=== PATIENT | male | born 1960 | race Caucasian/White ===

== ENCOUNTER 2016-06-23 13:36 | Emergency (ER) | payer BC ==
[2016-06-23 14:19] VITALS: RESP 18
--- NOTE | 2016-06-23 14:56 | ED ---
General Adult HPI - General Chief complaint: Back Pain/Injury Stated complaint: atavan withdrawl/fell yesterday Time Seen by Provider: 06/23/16 14:45 Source: patient, RN notes reviewed Mode of arrival: ambulatory Limitations: no limitations - History of Present Illness Initial comments: Patient 55-year-old male who presents emergency room today with a chief complaint of fall occurred 2 days ago. He does admit that he was using a walker when it got stuck causing him to lose his balance going down the right side. States he did hit the right side of his ribs. Denies any head injury or loss consciousness. Patient states that has had some tenderness to the right side of his back and lateral ribs. States worse with certain movements of bending or turning, and twisting. Patient denies any other complaints or symptoms. He does admit that he is currently out of a prescription for Ativan as well. States he does have a prescription at the pharmacy. Patient denies any other complaints or symptoms at this time. Patient denies any recent fever, chills, shortness of breath, chest pain, abdominal pain, nausea or vomiting, numbness or tingling, dysuria or hematuria, constipation or diarrhea, headaches or visual changes, or any other complaints. - Related Data Home Medications Medication Instructions Recorded Confirmed lamoTRIgine 200 mg PO DAILY 10/29/15 06/23/16 Gabapentin [Neurontin] 300 mg PO TID 12/14/15 06/23/16 Previous Rx's Medication Instructions Recorded Atorvastatin [Lipitor] 80 mg PO HS #30 tab 11/01/15 Lisinopril [Zestril] 5 mg PO BID #60 tab 11/01/15 Metoprolol Tartrate [Lopressor] 50 mg PO BID #60 tab 11/01/15 Nitroglycerin Sl Tabs [Nitrostat] 0.4 mg SUBLINGUAL Q5M PRN #50 tab 11/01/15 Prasugrel [Effient] 10 mg PO DAILY #30 tab 11/01/15 LORazepam [Ativan] 2 mg PO TID #90 tablet 03/10/16 Hydrocodone/Acetaminophen [[place] 1 each PO Q6HR PRN #20 tab 06/23/16 5-325] Ibuprofen [Motrin] 600 mg PO Q6HR PRN #40 day 06/23/16 Allergies Allergy/AdvReac Type Severity Reaction Status Date / Time amoxicillin Allergy Rash/Hives Verified 06/23/16 15:08 phenobarbital Allergy Rash/Hives Verified 06/23/16 15:08 Review of Systems ROS Statement: Those systems with pertinent positive or pertinent negative responses have been documented in the HPI. ROS Other: All systems not noted in ROS Statement are negative. Past Medical History Past Medical History: Chest Pain / Angina, Hyperlipidemia, Hypertension, Osteoarthritis (OA), Syncope Additional Past Medical History / Comment(s): chronic etoh abuse BRONCHITIS, ARTHRITIS, SHINGLE 1999,STATED HAS LOST 100 POUNDS SINCE MAR 2015(PTS SISTER STATED PT WILL DRINK HIS BEER AND THEN NOT WANT TO EAT), FLOATERS IN EYES, DEG ARTHITIS, ALCOHOL INDUCED PANCREATITIS History of Any Multi-Drug Resistant Organisms: None Reported Past Surgical History: Adenoidectomy, Heart Catheterization With Stent, Tonsillectomy Additional Past Surgical History / Comment(s): DRAINAGE OF PERIRECTAL ABCESS, HEART CATH WITH 3 STENTS IN OCTOBER 2015 Past Anesthesia/Blood Transfusion Reactions: No Reported Reaction Date of Last Stent Placement:: 10/30- Past Psychological History: Anxiety, Depression Additional Psychological History / Comment(s): PT DENIES HAVING ANY SUICIDAL THOUGHTS BUT ADMITS TO BEING DEPRESSED. Smoking Status: Never smoker Past Alcohol Use History: Abuse Additional Past Alcohol Use History / Comment(s): ADMITS TO 6-8 BEERS PER DAY, PINT OF [place] COMFORT DAILY. Past Drug Use History: None Reported - Past Family History Mother History Unknown: Yes Additional Family Medical History / Comment(s): PT STATED SHE IN HOSPITAL FEW MONTHS AGO THINKS IT WAS COMPLICTIONS FROM ASPERATIVE PNE Father Family Medical History: Cancer Additional Family Medical History / Comment(s): LUNG/ BRAIN CANCER General Exam - General Exam Comments Initial Comments: General: The patient is awake and alert, in no distress, and does not appear acutely ill. Eye: Pupils are equal, round and reactive to light, extra-ocular movements are intact. No nystagmus. There is normal conjunctiva bilaterally. No signs of icterus. Ears, nose, mouth and throat: There are moist mucous membranes and no oral lesions. Neck: The neck is supple, there is no tenderness or JVD. Cardiovascular: There is a regular rate and rhythm. No murmur, rub or gallop is appreciated. Respiratory: Lungs are clear to auscultation, respirations are non-labored, breath sounds are equal. No wheezes, stridor, rales, or rhonchi. Gastrointestinal: Soft, non-distended, non-tender abdomen without masses or organomegaly noted. There is no rebound or guarding present. No CVA tenderness. Bowel sounds are unremarkable. Musculoskeletal: Normal appearance of cervical, thoracic, lumbar spine. No step-offs for is appreciated. No tenderness over the spinous processes. Patient does have mild tenderness in the right posterior and lateral ribs. No signs of bruising, swelling. No deformities. Strength 5/5. Sensation intact. Pulses equal bilaterally 2+. Neurological: A&O x 3. CN II-XII intact, There are no obvious motor or sensory deficits. Coordination appears grossly intact. Speech is normal. Skin: Skin is warm and dry and no rashes or lesions are noted. Psychiatric: Cooperative, appropriate mood & affect, normal judgment. Limitations: no limitations Course Vital Signs 06/23/16 14:13 Temperature 98.5 F Pulse Rate 76 Respiratory 18 Rate Blood Pressure 151/73 O2 Sat by Pulse 95 Oximetry Medical Decision Making - Medical Decision Making X-rays reviewed and does show evidence of nondisplaced fractures of the eighth 8 ,9,10 right anterior ribs. Results were discussed with patient. Patient mitts to hyperventilating due to not having Serevent. Will be given dose of Ativan here in the emergency room but does have this medication at the pharmacy that he can hot die picker. Will be given pain medication as she states she has not been using anything advised used Tylenol Motrin if needed to begin using [place]. Advised to not use Tylenol or [place] at same time. Patient advised of side effects of [place]. Advised follow-up with family doctor or return here to emergency room if any symptoms increase or worsen. Disposition Clinical Impression: Ribs, multiple fractures Disposition: HOME SELF-CARE Condition: Good Instructions: Rib Fracture (ED) Additional Instructions: Please use medication as discussed. Please follow-up with family doctor in the next 2 days of symptoms have not improved. Please return to emergency room if the symptoms increase or worsen or for any other concerns. Prescriptions: Hydrocodone/Acetaminophen [[place] 5-325] 1 each PO Q6HR PRN #20 tab PRN Reason: Pain Ibuprofen [Motrin] 600 mg PO Q6HR PRN #40 day PRN Reason: Pain Time of Disposition: 15:49
--- NOTE | 2016-06-23 15:16 | XR ---
EXAMINATION TYPE: XR ribs RT w pa chest xray DATE OF EXAM: 06/23/2016 3:08 PM COMPARISON: 03/05/2016 HISTORY: Pain TECHNIQUE: Single view of the chest 4 views of the ribs are submitted. FINDINGS: The lungs are clear. No Evidence for pneumothorax. No evidence for focal contusion. Medi astinal structures are midline. Evaluation of the right-sided ribs demonstrates of fractures of the anterior right ribs 8, 9 and 10 c ompatible with acute rib fractures. There is also callus formation involving the right rib 8 compatib le with remote fracture as well as remote appearing deformity of right ribs 7. IMPRESSION: 1. Right-sided rib fractures as discussed.
[2016-06-23] MEDS ORDERED: LORazepam 1 MG TAB PO STA (15:33)
[2016-06-23 16:49] VITALS: BP 169/81; PULSE 71; TEMP 98.3
== END 2016-06-23 16:56 | disposition home or self-care (01) ==
LOC: EC 13:36
DX: S22.41XA Multiple fractures of ribs, right side, initial encounter for closed fracture (principal); W01.0XXA Fall on same level from slipping, tripping and stumbling without subsequent striking against object, initial encounter; Z79.899 Other long term (current) drug therapy; Z88.0 Allergy status to penicillin; Z88.8 Allergy status to other drugs, medicaments and biological substances; I10 Essential (primary) hypertension; E78.5 Hyperlipidemia, unspecified; F41.9 Anxiety disorder, unspecified; F32.9 Major depressive disorder, single episode, unspecified; Z79.02 Long term (current) use of antithrombotics/antiplatelets
CPT/HCPCS: 99283

== ENCOUNTER 2016-10-07 20:55 | Emergency (ER) | payer BC ==
[2016-10-07 21:05] VITALS: BP 140/67; PULSE 86; RESP 18; TEMP 97.6
[2016-10-07] MEDS ORDERED: GELATIN SPONGE,ABSORB (SMALL) 1 EACH SPONGE TOPICAL STA (21:15)
[2016-10-07] MEDS ORDERED: DIPH,PERTUS(ACELL)TETVAC-LF 0.5 ML VIAL IM ONE (21:15)
--- NOTE | 2016-10-07 21:18 | ED ---
Wound/Laceration HPI - General Chief Complaint: Wound/Laceration Stated Complaint: foot laceration Time Seen by Provider: 10/07/16 21:02 Source: patient, RN notes reviewed, old records reviewed Mode of arrival: wheelchair Limitations: no limitations - History of Present Illness Initial Comments: 56-year-old male presents of 80 chief complaint laceration over his right ankle. Patient reports that he cut it on glass or water while he was TAKING the trash out. Patient states that he is on [place] so he bled a lot. Patient denies any decreased range of motion of the ankle. Denies any possibility of foreign body. Patient reports that they would not stop bleeding taking the emergency department. Patient denies any fever or chills or chest pain or shortness breath or any other physical complaints. Patient does not know the status of his tetanus vaccination. - Related Data Home Medications Medication Instructions Recorded Confirmed lamoTRIgine 200 mg PO DAILY 10/29/15 06/23/16 Gabapentin [Neurontin] 300 mg PO TID 12/14/15 06/23/16 Previous Rx's Medication Instructions Recorded Atorvastatin [Lipitor] 80 mg PO HS #30 tab 11/01/15 Lisinopril [Zestril] 5 mg PO BID #60 tab 11/01/15 Metoprolol Tartrate [Lopressor] 50 mg PO BID #60 tab 11/01/15 Nitroglycerin Sl Tabs [Nitrostat] 0.4 mg SUBLINGUAL Q5M PRN #50 tab 11/01/15 Prasugrel [Effient] 10 mg PO DAILY #30 tab 11/01/15 LORazepam [Ativan] 2 mg PO TID #90 tablet 03/10/16 Hydrocodone/Acetaminophen [[place] 1 each PO Q6HR PRN #20 tab 06/23/16 5-325] Ibuprofen [Motrin] 600 mg PO Q6HR PRN #40 day 06/23/16 Allergies Allergy/AdvReac Type Severity Reaction Status Date / Time amoxicillin Allergy Rash/Hives Verified 10/07/16 21:05 phenobarbital Allergy Rash/Hives Verified 10/07/16 21:05 Review of Systems ROS Statement: Those systems with pertinent positive or pertinent negative responses have been documented in the HPI. ROS Other: All systems not noted in ROS Statement are negative. Past Medical History Past Medical History: Chest Pain / Angina, Hyperlipidemia, Hypertension, Osteoarthritis (OA), Syncope Additional Past Medical History / Comment(s): chronic etoh abuse BRONCHITIS, ARTHRITIS, SHINGLE 1999,STATED HAS LOST 100 POUNDS SINCE MAR 2015(PTS SISTER STATED PT WILL DRINK HIS BEER AND THEN NOT WANT TO EAT), FLOATERS IN EYES, DEG ARTHITIS, ALCOHOL INDUCED PANCREATITIS History of Any Multi-Drug Resistant Organisms: None Reported Past Surgical History: Adenoidectomy, Heart Catheterization With Stent, Tonsillectomy Additional Past Surgical History / Comment(s): DRAINAGE OF PERIRECTAL ABCESS, HEART CATH WITH 3 STENTS IN OCTOBER 2015 Past Anesthesia/Blood Transfusion Reactions: No Reported Reaction Date of Last Stent Placement:: 10/30- Past Psychological History: Anxiety, Depression Smoking Status: Never smoker Past Alcohol Use History: Abuse, Daily Past Drug Use History: None Reported - Past Family History Mother History Unknown: Yes Additional Family Medical History / Comment(s): PT STATED SHE IN HOSPITAL FEW MONTHS AGO THINKS IT WAS COMPLICTIONS FROM ASPERATIVE PNE Father Family Medical History: Cancer Additional Family Medical History / Comment(s): LUNG/ BRAIN CANCER General Exam - General Exam Comments Initial Comments: 36-year-old male. No distress. Limitations: no limitations General appearance: alert, in no apparent distress Head exam: Present: atraumatic, normocephalic, normal inspection Eye exam: Present: normal appearance, PERRL, EOMI. Absent: scleral icterus, conjunctival injection, periorbital swelling ENT exam: Present: normal exam, mucous membranes moist Neck exam: Present: normal inspection. Absent: tenderness, meningismus, lymphadenopathy Respiratory exam: Present: normal lung sounds bilaterally. Absent: respiratory distress, wheezes, rales, rhonchi, stridor Cardiovascular Exam: Present: regular rate, normal rhythm, normal heart sounds. Absent: systolic murmur, diastolic murmur, rubs, gallop, clicks GI/Abdominal exam: Present: soft, normal bowel sounds. Absent: distended, tenderness, guarding, rebound, rigid Extremities exam: Present: normal inspection, full ROM, normal capillary refill , other (47 m superficial abrasion over the medial right ankle.). Absent: tenderness, pedal edema, joint swelling, calf tenderness Back exam: Present: normal inspection Neurological exam: Present: alert, oriented X3, CN II-XII intact Psychiatric exam: Present: normal affect, normal mood Skin exam: Present: warm, dry, intact, normal color. Absent: rash Course Vital Signs 10/07/16 21:04 Temperature 97.6 F Pulse Rate 86 Respiratory 18 Rate Blood Pressure 140/67 O2 Sat by Pulse 97 Oximetry Medical Decision Making - Medical Decision Making This is a 56-year-old male. Patient does not appear to be in any acute distress presenting with a laceration over his right medial ankle. Patient is on blood thinners. Patient reports it was not stopping. Patient was updated on his tetanus vaccination. Wound was cleaned and I used silver nitrate stick to cauterize the edge of the laceration was bleeding. Patient was also given Gelfoam and wound dressing was applied. Discussed monitoring for any signs of infection including redness swelling or drainage. Patient was updated on his tetanus vaccination. Patient agrees to treatment plan will comply. Return parameters were discussed. Disposition Clinical Impression: Laceration of ankle Disposition: HOME SELF-CARE Condition: Good Instructions: Laceration (ED) Additional Instructions: Monitor for any signs of infection including redness swelling or drainage over the laceration. Return to the emergency department if any alarming signs or symptoms occur. Referrals: Jerry Nieto MD [Primary Care Provider] - 1-2 days Time of Disposition: 21:18
[2016-10-07] MEDS ORDERED: TOPICAL SKIN ADHESIVE 1 EACH AMP TOPICAL ONE (21:39)
== END 2016-10-07 22:06 | disposition home or self-care (01) ==
LOC: EC 20:55
DX: S91.011A Laceration without foreign body, right ankle, initial encounter (principal); F41.9 Anxiety disorder, unspecified; F32.9 Major depressive disorder, single episode, unspecified; Z23 Encounter for immunization; Z79.899 Other long term (current) drug therapy; Z88.0 Allergy status to penicillin; Z88.8 Allergy status to other drugs, medicaments and biological substances; W25.XXXA Contact with sharp glass, initial encounter
CPT/HCPCS: 90471; 90715; 99283

== ENCOUNTER 2016-11-01 04:36 | Inpatient (IN) | payer BC ==
[2016-11-01] MEDS ORDERED: ACETAMINOPHEN TAB 500 MG TAB PO STA (05:01)
[2016-11-01] MEDS ORDERED: LEVOFLOXACIN 750MG-D5W PMX 750 MG in DEXTROSE/WATER 1 150ML.BAG IVPB STA (05:01)
[2016-11-01] MEDS ORDERED: IBUPROFEN 600 MG TAB PO STA (05:01)
--- NOTE | 2016-11-01 05:14 | ED ---
General Adult HPI - General Source: patient, RN notes reviewed Mode of arrival: ambulatory Limitations: no limitations <Kamari Capone - Last Filed: 11/01/16 06:55> <Kamari Davies - Last Filed: 11/01/16 08:40> - General Chief complaint: Extremity Problem,Nontraumatic Stated complaint: infection Time Seen by Provider: 11/01/16 04:45 - History of Present Illness Initial comments: Is a 56-year-old male presents emergency Department because of redness and pain in the upper right thigh as well as pain to the lower leg swelling to the lower leg. Patient states he has significant calf pain in the right leg as well. Patient states been ongoing since yesterday morning. Patient denies any difficulty breathing shortness of breath. Patient denies any chest pain. Patient denies any history of clots. Patient denies any trauma to light. Patient denies any fever or chills. Patient denies abdominal pain patient denies nausea vomiting diarrhea. Patient denies any headache patient denies numbness weakness. Patient denies any lightheadedness dizziness or nursing episode. (Kamari Capone) - Related Data Home Medications Medication Instructions Recorded Confirmed lamoTRIgine 200 mg PO DAILY 10/29/15 11/01/16 Gabapentin [Neurontin] 300 mg PO TID 12/14/15 11/01/16 Previous Rx's Medication Instructions Recorded Atorvastatin [Lipitor] 80 mg PO HS #30 tab 11/01/15 Lisinopril [Zestril] 5 mg PO BID #60 tab 11/01/15 Metoprolol Tartrate [Lopressor] 50 mg PO BID #60 tab 11/01/15 Nitroglycerin Sl Tabs [Nitrostat] 0.4 mg SUBLINGUAL Q5M PRN #50 tab 11/01/15 Prasugrel [Effient] 10 mg PO DAILY #30 tab 11/01/15 Hydrocodone/Acetaminophen [[place] 1 each PO Q6HR PRN #20 tab 06/23/16 5-325] Ibuprofen [Motrin] 600 mg PO Q6HR PRN #40 day 06/23/16 Allergies Allergy/AdvReac Type Severity Reaction Status Date / Time amoxicillin Allergy Rash/Hives Verified 11/01/16 04:44 phenobarbital Allergy Rash/Hives Verified 11/01/16 04:44 Review of Systems ROS Other: All systems not noted in ROS Statement are negative. <Kamari Capone - Last Filed: 11/01/16 06:55> ROS Other: All systems not noted in ROS Statement are negative. <KekeJuliotrenton Huerta - Last Filed: 11/01/16 08:40> ROS Statement: Those systems with pertinent positive or pertinent negative responses have been documented in the HPI. Past Medical History Past Medical History: Chest Pain / Angina, Hyperlipidemia, Hypertension, Osteoarthritis (OA), Syncope Additional Past Medical History / Comment(s): chronic etoh abuse BRONCHITIS, ARTHRITIS, SHINGLE 1999,STATED HAS LOST 100 POUNDS SINCE MAR 2015(PTS SISTER STATED PT WILL DRINK HIS BEER AND THEN NOT WANT TO EAT), FLOATERS IN EYES, DEG ARTHITIS, ALCOHOL INDUCED PANCREATITIS History of Any Multi-Drug Resistant Organisms: None Reported Past Surgical History: Adenoidectomy, Heart Catheterization With Stent, Tonsillectomy Additional Past Surgical History / Comment(s): DRAINAGE OF PERIRECTAL ABCESS, HEART CATH WITH 3 STENTS IN OCTOBER 2015 Past Anesthesia/Blood Transfusion Reactions: No Reported Reaction Date of Last Stent Placement:: 10/30- Past Psychological History: Anxiety, Depression Smoking Status: Never smoker Past Alcohol Use History: Abuse, Daily Past Drug Use History: None Reported - Past Family History Mother History Unknown: Yes Additional Family Medical History / Comment(s): PT STATED SHE IN HOSPITAL FEW MONTHS AGO THINKS IT WAS COMPLICTIONS FROM ASPERATIVE PNE Father Family Medical History: Cancer Additional Family Medical History / Comment(s): LUNG/ BRAIN CANCER <Kamari Capone - Last Filed: 11/01/16 06:55> General Exam Limitations: no limitations <Kamari Capone - Last Filed: 11/01/16 06:55> General appearance: alert, in no apparent distress Head exam: Present: atraumatic, normocephalic, normal inspection Eye exam: Present: normal appearance, PERRL, EOMI. Absent: scleral icterus, conjunctival injection, periorbital swelling ENT exam: Present: normal exam, mucous membranes moist Neck exam: Present: normal inspection. Absent: tenderness, meningismus, lymphadenopathy Respiratory exam: Present: normal lung sounds bilaterally. Absent: respiratory distress, wheezes, rales, rhonchi, stridor Cardiovascular Exam: Present: regular rate, normal rhythm, normal heart sounds. Absent: systolic murmur, diastolic murmur, rubs, gallop, clicks GI/Abdominal exam: Present: soft, normal bowel sounds. Absent: distended, tenderness, guarding, rebound, rigid Extremities exam: Present: normal inspection, full ROM, normal capillary refill , other (Right upper thigh and is from cellulitis, right lower leg is significant vasculitis with edema). Absent: tenderness, pedal edema, joint swelling, calf tenderness Back exam: Present: normal inspection Neurological exam: Present: alert, oriented X3, CN II-XII intact Psychiatric exam: Present: normal affect, normal mood Skin exam: Present: warm, dry, intact, normal color. Absent: rash <Kamari Davies - Last Filed: 11/01/16 08:40> - General Exam Comments Initial Comments: GENERAL: Patient is well-developed and well-nourished. Patient is nontoxic and well- hydrated and is in mild distress. ENT: Neck is soft and supple. No significant lymphadenopathy is noted. Oropharynx is clear. Moist mucous membranes. Neck has full range of motion without eliciting any pain. There is no thyroid enlargement and no masses were felt. EYES: The sclera were anicteric and conjunctiva were pink and moist. Extraocular movements were intact and pupils were equal round and reactive to light. Eyelids were unremarkable. PULMONARY: Unlabored respirations. Good breath sounds bilaterally. No audible rales rhonchi or wheezing was noted. CARDIOVASCULAR: There is a regular rate and rhythm without any murmurs gallops or rubs. Femoral pulses are equal bilaterally ABDOMEN: Soft and nontender with normal bowel sounds. No palpable organomegaly was noted. There is no palpable pulsatile mass. SKIN: Large red warm area to the upper right medial thigh. Patient's right lower leg is also filled with petechiae. NEUROLOGIC: Patient is alert and oriented x3. Cranial nerves II through XII are grossly intact. Motor and sensory are also intact. Normal speech, volume and content. Symmetrical smile. . MUSCULOSKELETAL: Normal extremities with adequate strength and full range of motion. Patient's right lower extremity is swollen and it Is tender to palpation. LYMPHATICS: No significant lymphadenopathy is noted PSYCHIATRIC: Normal psychiatric evaluation. Normal interpersonal interactions appears functionally intact in deals appropriately with others. (Kamari Capone) Course <Kamari Capone - Last Filed: 11/01/16 06:55> <Kamari Davies - Last Filed: 11/01/16 08:40> Vital Signs 11/01/16 04:40 Temperature 99.8 F H Pulse Rate 94 Respiratory 18 Rate Blood Pressure 146/66 O2 Sat by Pulse 95 Oximetry - Reevaluation(s) Reevaluation #1: 11/01/16 07:53 At this point patient has adequate pain control, no longer vomiting (Kamari Davies) Medical Decision Making - Lab Data Result diagrams: 11/01/16 05:30 11/01/16 05:30 <Kamari Capone - Last Filed: 11/01/16 06:55> - Lab Data Result diagrams: 11/01/16 05:30 11/01/16 05:30 - Radiology Data Radiology results: report reviewed (Chest x-ray negative for acute disease, venous duplex and right lower negative for DVT), image reviewed <Kamari Davies - Last Filed: 11/01/16 08:40> - Medical Decision Making Dr. Davies will be taking over the care of this patient at 7 AM (Kamari Capone) 36 [address] for evaluation regarding her upper and lower extremity sialitis, upper thigh sialitis severe, fully circumferential with erythema and tenderness. Patient also distal LE vasculitis. We'll put him antibiotics and admit for evaluation and treatment, patient does have elevated lactic acid, secondary to likely dehydration versus sepsis, (Kamari Davies) - Lab Data Lab Results 11/01/16 11/01/16 11/01/16 Range/Units 05:30 05:30 05:30 WBC 10.9 H (3.8-10.6) k/uL RBC 3.13 L (4.30-5.90) m/uL Hgb 10.5 L (13.0-17.5) gm/dL Hct 30.1 L (39.0-53.0) % MCV 96.4 (80.0-100.0) fL MCH 33.7 (25.0-35.0) pg MCHC 35.0 (31.0-37.0) g/dL RDW 15.0 (11.5-15.5) % Plt Count 53 L (150-450) k/uL Neutrophils % 86 % Lymphocytes % 9 % Monocytes % 3 % Eosinophils % 0 % Basophils % 0 % Neutrophils # 9.4 H (1.3-7.7) k/uL Lymphocytes # 1.0 (1.0-4.8) k/uL Monocytes # 0.3 (0-1.0) k/uL Eosinophils # 0.0 (0-0.7) k/uL Basophils # 0.0 (0-0.2) k/uL Manual Slide Review Performed PT (9.0-12.0) sec INR (<1.2) APTT (22.0-30.0) sec Sodium 132 L (137-145) mmol/L Potassium 3.4 L (3.5-5.1) mmol/L Chloride 100 (98-107) mmol/L Carbon Dioxide 24 (22-30) mmol/L Anion Gap 8 mmol/L BUN 10 (9-20) mg/dL Creatinine 0.66 (0.66-1.25) mg/dL Est GFR (MDRD) Af Amer >60 (>60 ml/min/1.73 sqM) Est GFR (MDRD) Non-Af >60 (>60 ml/min/1.73 sqM) Glucose 103 H (74-99) mg/dL Plasma Lactic Acid Jose R 2.9 H* (0.7-2.0) mmol/L Calcium 8.2 L (8.4-10.2) mg/dL Magnesium (1.6-2.3) mg/dL Total Bilirubin 1.8 H (0.2-1.3) mg/dL AST 113 H (17-59) U/L ALT 59 (21-72) U/L Alkaline Phosphatase 54 (38-126) U/L Total Protein 5.3 L (6.3-8.2) g/dL Albumin 2.9 L (3.5-5.0) g/dL Serum Alcohol 15 mg/dL 11/01/16 11/01/16 Range/Units 05:30 05:32 WBC (3.8-10.6) k/uL RBC (4.30-5.90) m/uL Hgb (13.0-17.5) gm/dL Hct (39.0-53.0) % MCV (80.0-100.0) fL MCH (25.0-35.0) pg MCHC (31.0-37.0) g/dL RDW (11.5-15.5) % Plt Count (150-450) k/uL Neutrophils % % Lymphocytes % % Monocytes % % Eosinophils % % Basophils % % Neutrophils # (1.3-7.7) k/uL Lymphocytes # (1.0-4.8) k/uL Monocytes # (0-1.0) k/uL Eosinophils # (0-0.7) k/uL Basophils # (0-0.2) k/uL Manual Slide Review PT 13.1 H (9.0-12.0) sec INR 1.3 H (<1.2) APTT 29.6 (22.0-30.0) sec Sodium (137-145) mmol/L Potassium (3.5-5.1) mmol/L Chloride (98-107) mmol/L Carbon Dioxide (22-30) mmol/L Anion Gap mmol/L BUN (9-20) mg/dL Creatinine (0.66-1.25) mg/dL Est GFR (MDRD) Af Amer (>60 ml/min/1.73 sqM) Est GFR (MDRD) Non-Af (>60 ml/min/1.73 sqM) Glucose (74-99) mg/dL Plasma Lactic Acid Jose R (0.7-2.0) mmol/L Calcium (8.4-10.2) mg/dL Magnesium 1.2 L (1.6-2.3) mg/dL Total Bilirubin (0.2-1.3) mg/dL AST (17-59) U/L ALT (21-72) U/L Alkaline Phosphatase (38-126) U/L Total Protein (6.3-8.2) g/dL Albumin (3.5-5.0) g/dL Serum Alcohol mg/dL Disposition <Kamari Capone - Last Filed: 11/01/16 06:55> <Kamari Davies - Last Filed: 11/01/16 08:40> Clinical Impression: Hypomagnesemia, Alcoholic intoxication, Cellulitis of right leg, Dehydration, Lactic acidosis Disposition: ADMITTED IP TO THIS HOSP Condition: Fair Referrals: Jerry Nieto MD [Primary Care Provider] - 1-2 days
[2016-11-01] MEDS: SODIUM CHLORIDE 0.9% 500 ML IV SCH ×2 (05:29→07:41)
[2016-11-01 05:47] LABS: Basophils % (A) 0 %; CH 33.1; CHCM 34.5; Eosinophils % (A) 0 %; HCT 30.1 % (39.0-53.0); HDW 2.14; HGB 10.5 gm/dL (13.0-17.5); Luc # (Auto) 0.14; Luc % (Auto) 1; Lymphocytes % (A) 9 %; MCH 33.7 pg (25.0-35.0); MCV 96.4 fL (80.0-100.0); Mean Platelet Volume 9.5; Monocytes # (A) 0.3 k/uL (0-1.0); Monocytes % (A) 3 %; Neutrophils # (A) 9.4 k/uL (1.3-7.7); Neutrophils % (A) 86 %; RBC 3.13 m/uL (4.30-5.90); WBC 10.9 k/uL (3.8-10.6); WBC (Perox) 10.36
[2016-11-01 05:51] LABS: INR 1.3 (<1.2); Partial Thromboplastin Time 29.6 sec (22.0-30.0); Prothrombin Time 13.1 sec (9.0-12.0)
[2016-11-01 05:52] LABS: ALT 59 U/L (21-72); AST 113 U/L (17-59); Alcohol 15 mg/dL; Alkaline Phosphatase 54 U/L (38-126); Anion Gap 8 mmol/L; Blood Urea Nitrogen 10 mg/dL (9-20); Calcium 8.2 mg/dL (8.4-10.2); Carbon Dioxide 24 mmol/L (22-30); Chloride 100 mmol/L (98-107); Glucose 103 mg/dL (74-99); Non-African American GFR(MDRD) >60 (>60 ml/min/1.73 sqM); Potassium 3.4 mmol/L (3.5-5.1); Sodium 132 mmol/L (137-145); Total Bilirubin 1.8 mg/dL (0.2-1.3); Total Protein 5.3 g/dL (6.3-8.2)
[2016-11-01 06:34] LABS: Manual Review Performed
--- NOTE | 2016-11-01 06:58 | XR ---
EXAM: XR Chest, 2 Views. CLINICAL HISTORY: Reason: Fever TECHNIQUE: Frontal and lateral views of the chest. COMPARISON: 06/23/16 FINDINGS: Lungs: Unremarkable. No consolidation. Pleural spaces: Unremarkable. No pneumothorax. Heart: Unremarkable. No cardiomegaly. Mediastinum: Unremarkable. Bones: No acute fracture. IMPRESSION: No evidence of active cardiopulmonary abnormality..
[2016-11-01] MEDS ORDERED: IV VANCOMYCIN PER PHARMACY 1 EACH MISC MISCELLANE PRN ×2 (07:46→10:27)
[2016-11-01] MEDS ORDERED: MORPHINE SULFATE 4 MG/ML SYRINGE IVP STA (07:47)
[2016-11-01] MEDS ORDERED: POTASSIUM BICARB-CITRIC ACID 25 MEQ TABLET.EFF PO STA (07:47)
[2016-11-01] MEDS ORDERED: ONDANSETRON 4 MG/2 ML VIAL IVP STA (07:47)
[2016-11-01] MEDS ORDERED: MAGNESIUM OXIDE 400 MG TAB PO STA (07:47)
[2016-11-01] MEDS ORDERED: SODIUM CHLORIDE 0.9% 1,000 ML IV STA (07:54)
[2016-11-01] MEDS ORDERED: LORazepam 2 MG/ML SYRINGE IV PRN ×2 (07:54)
[2016-11-01] MEDS ORDERED: SODIUM CHLORIDE 0.9% 2,000 ML IV STA (07:54)
[2016-11-01] MEDS ORDERED: SODIUM CHLORIDE 0.9% 500 ML IV STA (07:54)
[2016-11-01] MEDS ORDERED: VANCOMYCIN 1,500 MG in SODIUM CHLORIDE 0.9% 250 ML IVPB STA (07:54)
[2016-11-01] MEDS ORDERED: THIAMINE 100 MG/ML 2 ML VIAL IM STA (07:54)
--- NOTE | 2016-11-01 07:57 | US ---
EXAMINATION TYPE: US venous doppler duplex LE RT DATE OF EXAM: 11/01/2016 7:28 AM COMPARISON: NONE CLINICAL HISTORY: Pain. SIDE PERFORMED: Right TECHNIQUE: The lower extremity deep venous system is examined utilizing real time linear array sonog nubia with graded compression, doppler sonography and color-flow sonography. VESSELS IMAGED: External Iliac Vein (EIV) Common Femoral Vein Deep Femoral Vein Greater Saphenous Vein * Femoral Vein Popliteal Vein Small Saphenous Vein * Proximal Calf Veins (* superficial vessels) Grayscale, color doppler, spectral doppler imaging performed of the deep veins of the lower extremity . There is normal flow, compressibility, vascular waveforms . Right Leg: Negative for DVT Incidental lymph node noted appears hypervascular. Also calf edema noted. IMPRESSION: No evidence for DVT at this time.
[2016-11-01] MEDS ORDERED: SODIUM CHLORIDE 0.9% 1,000 ML IV ONE (08:38)
[2016-11-01] MEDS: MAGNESIUM SULFATE-D5W PMX 1 GM in DEXTROSE/WATER 1 100ML.BAG IVPB SCH ×5 (10:17→14:41)
[2016-11-01] MEDS ORDERED: NITROGLYCERIN SL TABS 0.4 MG TAB SUBLINGUAL PRN (10:29)
[2016-11-01 10:40] VITALS: BMI 22.0
[2016-11-01] MEDS: LORazepam 2 MG/ML SYRINGE IV PRN (11:54)
[2016-11-01] MEDS: ENOXAPARIN 40 MG/0.4 ML SYRINGE SQ SCH (11:54)
--- NOTE | 2016-11-01 12:12 | P.HPIM ---
History of Present Illness Is a 56-year-old male presents emergency Department because of redness and pain in the upper right thigh as well as pain to the lower leg swelling to the lower leg. Patient states he has significant calf pain in the right leg as well. Patient states been ongoing since yesterday morning. Patient denies any difficulty breathing shortness of breath. Patient denies any chest pain. Patient denies any history of clots. Patient denies any trauma to light. Patient denies any fever or chills. Patient denies abdominal pain patient denies nausea vomiting diarrhea. Patient denies any headache patient denies numbness weakness. Patient denies any lightheadedness dizziness. Patient does have extensive colitis of the right leg with a severe burning sensation extending up to the right groin area with possible lymphadenopathy in the right groin area. And patient is septic with elevated RBC count low-grade fever and lactic acidosis. Patient is on IV fluids and the patient is on IV vancomycin can sing the severity of right lower limb cellulitis most probably streptococcal, I'll going consult infectious disease. Patient probably will need ceftezolin and and but I'll let infectious decide about the. She never had history of penicillin resistant staph aureus infection Review of Systems REVIEW OF SYSTEMS: CONSTITUTIONAL: No fever, no malaise, no fatigue. HEENT: No recent visual problems or hearing problems. Denied any sore throat. CARDIOVASCULAR: No chest pain, orthopnea, PND, no palpitations, no syncope. PULMONARY: No shortness of breath, no cough, no hemoptysis. GASTROINTESTINAL: No diarrhea, no nausea, no vomiting, no abdominal pain. Normoactive bowel sounds. NEUROLOGICAL: No headaches, no weakness, no numbness. HEMATOLOGICAL: Denies any bleeding or petechiae. GENITOURINARY: Denies any burning micturition, frequency, or urgency. MUSCULOSKELETAL/RHEUMATOLOGICAL: Denies any joint pain, swelling, or any muscle pain. ENDOCRINE: Denies any polyuria or polydipsia. The rest of the 14-point review of systems is negative. Past Medical History Past Medical History: Chest Pain / Angina, Hyperlipidemia, Hypertension, Osteoarthritis (OA), Syncope Additional Past Medical History / Comment(s): chronic etoh abuse BRONCHITIS, ARTHRITIS, SHINGLE 1999,STATED HAS LOST 100 POUNDS SINCE MAR 2015(PTS SISTER STATED PT WILL DRINK HIS BEER AND THEN NOT WANT TO EAT), FLOATERS IN EYES, DEG ARTHITIS, ALCOHOL INDUCED PANCREATITIS History of Any Multi-Drug Resistant Organisms: None Reported Past Surgical History: Adenoidectomy, Heart Catheterization With Stent, Tonsillectomy Additional Past Surgical History / Comment(s): DRAINAGE OF PERIRECTAL ABCESS, HEART CATH WITH 3 STENTS IN OCTOBER 2015 Past Anesthesia/Blood Transfusion Reactions: No Reported Reaction Date of Last Stent Placement:: 10/30- Past Psychological History: Anxiety, Depression Additional Psychological History / Comment(s): PT DENIES HAVING ANY SUICIDAL THOUGHTS BUT ADMITS TO BEING DEPRESSED. Smoking Status: Never smoker Past Alcohol Use History: Abuse, Daily Additional Past Alcohol Use History / Comment(s): ADMITS TO 6-8 BEERS PER DAY, PINT OF [place] COMFORT DAILY. Past Drug Use History: None Reported - Past Family History Mother History Unknown: Yes Additional Family Medical History / Comment(s): PT STATED SHE IN HOSPITAL FEW MONTHS AGO THINKS IT WAS COMPLICTIONS FROM ASPiRATIVE PNE Father Family Medical History: Cancer Additional Family Medical History / Comment(s): LUNG/ BRAIN CANCER Medications and Allergies Home Medications Medication Instructions Recorded Confirmed Type lamoTRIgine 200 mg PO DAILY 10/29/15 11/01/16 History Gabapentin [Neurontin] 300 mg PO TID 12/14/15 11/01/16 History Cyanocobalamin [Vitamin B-12] 500 mcg PO DAILY 11/01/16 11/01/16 History Lisinopril [Prinivil] 5 mg PO DAILY 11/01/16 11/01/16 History Metoprolol Tartrate [Lopressor] 50 mg PO DAILY 11/01/16 11/01/16 History Thiamine HCl [Vitamin B-1] 50 mg PO DAILY 11/01/16 11/01/16 History Vitamin A 8,000 unit PO DAILY 11/01/16 11/01/16 History Allergies Allergy/AdvReac Type Severity Reaction Status Date / Time amoxicillin Allergy Rash/Hives Verified 11/01/16 11:51 phenobarbital Allergy Rash/Hives Verified 11/01/16 11:51 Physical Exam Vitals: Vital Signs Temp Pulse Pulse Resp BP BP Pulse Ox 11/01/16 10:12 98.5 F 68 16 150/79 98 11/01/16 09:00 98.3 F 76 20 144/70 98 11/01/16 08:00 71 H 155/72 97 11/01/16 04:40 99.8 F H 94 18 146/66 95 Intake and Output 10/31/16 11/01/16 11/01/16 22:59 06:59 14:59 Other: Weight 75.75 kg 75.75 kg Patient Weight 11/02/16 06:59 Weight 75.75 kg PHYSICAL EXAMINATION: GENERAL: The patient is alert and oriented x3, not in any acute distress. Well developed, well nourished. HEENT: Pupils are round and equally reacting to light. EOMI. No scleral icterus. No conjunctival pallor. Normocephalic, atraumatic. No pharyngeal erythema. No thyromegaly. CARDIOVASCULAR: S1 and S2 present. No murmurs, rubs, or gallops. PULMONARY: Chest is clear to auscultation, no wheezing or crackles. ABDOMEN: Soft, nontender, nondistended, normoactive bowel sounds. No palpable organomegaly. MUSCULOSKELETAL: No joint swelling or deformity. EXTREMITIES: No cyanosis, clubbing, or pedal edema. NEUROLOGICAL: Gross neurological examination did not reveal any focal deficits. SKIN: Patient has extensive redness in the right lower limb with edema localized of temperature extending up to the right groin area with possible lymphadenopathy in the right groin area. Results CBC & Chem 7: 11/01/16 05:30 11/01/16 05:30 Labs: Abnormal Lab Results - Last 24 Hours (Table) 11/01/16 11/01/16 11/01/16 Range/Units 05:30 05:30 05:30 WBC 10.9 H (3.8-10.6) k/uL RBC 3.13 L (4.30-5.90) m/uL Hgb 10.5 L (13.0-17.5) gm/dL Hct 30.1 L (39.0-53.0) % Plt Count 53 L (150-450) k/uL Neutrophils # 9.4 H (1.3-7.7) k/uL PT (9.0-12.0) sec INR (<1.2) Sodium 132 L (137-145) mmol/L Potassium 3.4 L (3.5-5.1) mmol/L Glucose 103 H (74-99) mg/dL Plasma Lactic Acid Jose R 2.9 H* (0.7-2.0) mmol/L Calcium 8.2 L (8.4-10.2) mg/dL Magnesium (1.6-2.3) mg/dL Total Bilirubin 1.8 H (0.2-1.3) mg/dL AST 113 H (17-59) U/L Total Protein 5.3 L (6.3-8.2) g/dL Albumin 2.9 L (3.5-5.0) g/dL 11/01/16 11/01/16 Range/Units 05:30 05:32 WBC (3.8-10.6) k/uL RBC (4.30-5.90) m/uL Hgb (13.0-17.5) gm/dL Hct (39.0-53.0) % Plt Count (150-450) k/uL Neutrophils # (1.3-7.7) k/uL PT 13.1 H (9.0-12.0) sec INR 1.3 H (<1.2) Sodium (137-145) mmol/L Potassium (3.5-5.1) mmol/L Glucose (74-99) mg/dL Plasma Lactic Acid Jose R (0.7-2.0) mmol/L Calcium (8.4-10.2) mg/dL Magnesium 1.2 L (1.6-2.3) mg/dL Total Bilirubin (0.2-1.3) mg/dL AST (17-59) U/L Total Protein (6.3-8.2) g/dL Albumin (3.5-5.0) g/dL Thrombosis Risk Factor Assmnt - Choose All That Apply Any of the Below Risk Factors Present?: Yes Each Factor Represents 1 point: Swollen legs (current) Other Risk Factors: No Other congenital or acquired thrombophilia - If yes, enter type in comment: No Thrombosis Risk Factor Assessment Total Risk Factor Score: 1 Thrombosis Risk Factor Assessment Level: Low Risk Assessment and Plan Plan: 1 severe sepsis secondary to right lower limb cellulitis: Patient is on vancomycin IV fluids will be continued at present rate and infectious disease was consulted. 2 hyponatremia hypovolemic hyponatremia expected to improve with IV fluids and potassium and magnesium will be corrected #3 alcohol abuse: Will watch for any alcohol withdrawal patient is on Ativan all call withdrawal protocol #4 possible early stages of cirrhosis of acute alcoholic hepatitis 5 hypertension: Continue with beta delano hold off on CHATO inhibitor with concerns of severe sepsis. #6 hyperlipidemia
[2016-11-01] MEDS: HYDROcodone/APAP 5-325MG 1 EACH TAB PO PRN (13:12)
[2016-11-01] MEDS: GABAPENTIN 300 MG CAP PO SCH ×3 (15:27→21:23)
[2016-11-01] MEDS ORDERED: VANCOMYCIN 1,250 MG in SODIUM CHLORIDE 0.9% 250 ML IVPB SCH ×4 (16:00)
[2016-11-01] MEDS: ceFAZolin 2 GM in SODIUM CHLORIDE 0.9% 100 ML IVPB SCH (17:26)
[2016-11-01] MEDS: THIAMINE 100 MG TAB PO SCH (17:26)
[2016-11-01 18:09] LABS: Appearance,Urine Clear (Clear); Bilirubin,Urine Negative (Negative); Glucose,Urine (UA) Negative (Negative); Ketones,Urine Negative (Negative); Leukocyte Esterase,Urine Negative (Negative); Mucus,Urine Few /hpf; Nitrite,Urine Negative (Negative); Particle Count 4419; Protein,Urine 1+ (Negative); Specific Gravity,Urine 1.023 (1.001-1.035); UA Billing (MACRO vs. MICRO) MICRO; Urobilinogen,Urine <2.0 mg/dL (<2.0); WBC,Urine 1 /hpf (0-5)
[2016-11-01] MEDS: METOPROLOL TARTRATE 50 MG TAB PO SCH (21:23)
[2016-11-01] MEDS: ESOMEPRAZOLE 20 MG in SODIUM CHLORIDE 0.9% 50 ML IVPB SCH (23:40)
[2016-11-01] MEDS: ATORVASTATIN 80 MG TAB PO SCH (23:41)
[2016-11-02] MEDS: ceFAZolin 2 GM in SODIUM CHLORIDE 0.9% 100 ML IVPB SCH ×3 (00:44→16:19)
[2016-11-02] MEDS: HYDROcodone/APAP 5-325MG 1 EACH TAB PO PRN (05:47)
[2016-11-02 05:52] LABS: Anion Gap 5 mmol/L; Blood Urea Nitrogen 13 mg/dL (9-20); Calcium 7.8 mg/dL (8.4-10.2); Carbon Dioxide 25 mmol/L (22-30); Chloride 104 mmol/L (98-107); Glucose 101 mg/dL (74-99); Non-African American GFR(MDRD) >60 (>60 ml/min/1.73 sqM); Potassium 4.2 mmol/L (3.5-5.1); Sodium 134 mmol/L (137-145)
[2016-11-02] MEDS: ENOXAPARIN 40 MG/0.4 ML SYRINGE SQ SCH (08:20)
[2016-11-02] MEDS: lamoTRIgine 100 MG TAB PO SCH (08:21)
[2016-11-02] MEDS: PRASUGREL 10 MG TAB PO SCH (08:21)
[2016-11-02] MEDS: METOPROLOL TARTRATE 50 MG TAB PO SCH ×2 (08:21→20:25)
[2016-11-02] MEDS: GABAPENTIN 300 MG CAP PO SCH ×3 (08:21→22:40)
[2016-11-02] MEDS: LORazepam 2 MG/ML SYRINGE IV PRN (10:15)
--- NOTE | 2016-11-02 10:40 | P.PN ---
Subjective 56-year-old admitted secondary to right lower limb cellulitis extending up to the knee as well as in the thigh area involving the inguinal area on the right side 11/02/2016 Patient is having significant all call withdrawal symptoms. Patient was combining of chest pain which appears to be secondary to gastroesophageal reflux disease patient was started on Protonix. Ibuprofen was discontinued. And the patient has minimally elevated troponin of 0.1 which remained stable at that level is secondary to sepsis I do not believe patient has acute myocardial infarction EKG was reviewed. Cardiology was consulted. Patient is on all call withdrawal protocol. Patient's redness in the right leg is bit better remains the same. Objective - Vital Signs Vital signs: Vital Signs Temp 99.1 F 11/02/16 07:00 Pulse 86 11/02/16 08:00 Resp 18 11/02/16 08:00 BP 141/76 11/02/16 07:00 Pulse Ox 97 11/02/16 07:00 Intake & Output 11/01/16 11/02/16 11/02/16 18:59 06:59 18:59 Intake Total 2450 1150 240 Output Total 500 Balance 1950 1150 240 Weight 75.75 kg 75.75 kg 75.75 kg Intake: Intake, IV Titration 2250 1150 Amount Magnesium Sulfate-D5w Pmx 200 1 gm In Dextrose/Water 1 100ml.bag @ 100 mls/hr IVPB Q1H [facility] Rx#: [id number] Sodium Chloride 0.9% 1, 350 000 ml @ 100 mls/hr IV . Q10H [facility] Rx#:[id number] Sodium Chloride 0.9% 2, 2000 000 ml @ 999 mls/hr IV . Q2H1M [facility] Rx#:[id number] ceFAZolin 2 gm In Sodium 800 Chloride 0.9% 100 ml @ 100 mls/hr IVPB Q8HR [facility] Rx#:[id number] cefTRIAXone 1,000 mg In 50 Sodium Chloride 0.9% 50 ml @ 100 mls/hr IVPB Q24HR [facility] Rx#:[id number] Oral 200 240 Output: Urine 500 Other: # Voids 1 1 - Exam PHYSICAL EXAMINATION: GENERAL: The patient is alert and oriented x3, not in any acute distress. Well developed, well nourished. HEENT: Pupils are round and equally reacting to light. EOMI. No scleral icterus. No conjunctival pallor. Normocephalic, atraumatic. No pharyngeal erythema. No thyromegaly. CARDIOVASCULAR: S1 and S2 present. No murmurs, rubs, or gallops. PULMONARY: Chest is clear to auscultation, no wheezing or crackles. ABDOMEN: Soft, nontender, nondistended, normoactive bowel sounds. No palpable organomegaly. MUSCULOSKELETAL: No joint swelling or deformity. EXTREMITIES: No cyanosis, clubbing, or pedal edema. NEUROLOGICAL: Gross neurological examination did not reveal any focal deficits. SKIN: Patient has extensive redness in the right lower limb with edema localized of temperature extending up to the right groin area with possible lymphadenopathy in the right groin area. Patient appears to have minimal or no improvement compared to yesterday - Labs CBC & Chem 7: 11/01/16 05:30 11/02/16 05:13 Labs: Abnormal Lab Results - Last 24 Hours (Table) 11/01/16 11/01/16 11/02/16 Range/Units 17:45 22:15 05:13 Sodium 134 L (137-145) mmol/L Creatinine 0.60 L (0.66-1.25) mg/dL Glucose 101 H (74-99) mg/dL Calcium 7.8 L (8.4-10.2) mg/dL Troponin I 0.164 H* (0.000-0.034) ng/mL Urine Protein 1+ H (Negative) Hyaline Casts 8 H (0-2) /lpf Urine Mucus Few H (None) /hpf 11/02/16 Range/Units 05:13 Sodium (137-145) mmol/L Creatinine (0.66-1.25) mg/dL Glucose (74-99) mg/dL Calcium (8.4-10.2) mg/dL Troponin I 0.188 H* (0.000-0.034) ng/mL Urine Protein (Negative) Hyaline Casts (0-2) /lpf Urine Mucus (None) /hpf Microbiology - Last 24 Hours (Table) 11/01/16 05:30 Blood Culture - Preliminary Blood No Growth after 24 hours 11/01/16 17:45 Urine Culture - Preliminary Urine,Voided Assessment and Plan Plan: 1 severe sepsis secondary to right lower limb cellulitis: Patient is on ceftezole and IV fluids will be continued at present rate and infectious disease evaluated the patient 2 hyponatremia hypovolemic hyponatremia expected to improve with IV fluids and potassium and magnesium will be corrected. Improved with IV fluids. #3 alcohol abuse: Will watch for any alcohol withdrawal patient is on Ativan all call withdrawal protocol. Patient is having withdrawals. #4 possible early stages of cirrhosis of acute alcoholic hepatitis 5 hypertension: Continue with beta delano hold off on CHATO inhibitor with concerns of severe sepsis. #6 hyperlipidemia #7 chest pain: Secondary alcoholic gastritis, mildly elevated troponins are secondary to sepsis. I do not believe patient has acute myocardial infarction
[2016-11-02] MEDS: THIAMINE 100 MG TAB PO SCH ×2 (11:49→16:22)
--- NOTE | 2016-11-02 13:05 | CONS ---
DATE OF SERVICE: 11/01/2016 REASON FOR CONSULTATION: Right lower extremity cellulitis. HISTOR OF PRESENT ILLNESS: The patient is a 76-year-old male who presented to the ER with chief complaints of right leg swelling and redness, which apparently has been going on for a few days prior to presenting to the hospital. The patient did have some dry scaly skin on the side of his leg though no history of any trauma. Subsequently, noticed to have redness of the right leg along with the achy pain 3 to 4 out of 10 with no radiation. There was no skin breakdown. There was no drainage. With these symptoms the patient has been evaluated by the ER physician. The patient did have lower extremity Doppler that has been negative for DVT. On arrival to the ER the patient had low grade fever of 99.8. The white count was 10.9 and patient was started on vancomycin because of his AMOXICILLIN ALLERGY which was long time ago with rash. No history of anaphylaxis. I was asked to see the patient today for further recommendations regarding antibiotic therapy. REVIEW OF SYSTEMS: CONSTITUTIONAL: Positive for weakness. Some chills. EYES: No complaint. ENT: No complaint. RESPIRATORY: No complaint. CARDIOVASCULAR: No complaint. GENITOURINARY: No complaint. GASTROINTESTINAL: No complaint. MUSCULOSKELETAL: No complaint. INTEGUMENTARY: As per HPI. PSYCHOLOGICAL: No complaint. ENDOCRINE: No complaint. NEUROLOGICAL: No complaint. PAST MEDICAL HISTORY: Hypertension, hyperlipidemia, chest pain, angina, osteoarthritis, and syncope, chronic ETOH abuse. PAST SURGICAL HISTORY: Tonsillectomy, PTCA with stent, adenoidectomy and drainage of the perirectal abscess. SOCIAL HISTORY: Admits to 6 to 8 beers per day. No history of smoking or any drug use. FAMILY HISTORY: Father with history of lung and brain cancer. ALLERGIES: AMOXICILLIN with rash. No history of anaphylaxis. Also allergic to PHENOBARBITAL. Medications include the patient is currently on [place], Lipitor, vancomycin, Lovenox, esomeprazole, Neurontin, Lamictal, Ativan, Lopressor. On examination: Blood pressure 147/80 with pulse 56. Temperature 97.7. He is 98 % on room air. General description is a middle aged male lying in bed in no distress. HEENT examination shows slight pallor. No scleral icterus. Oral mucous membrane is dry. NECK: Trachea is central. No thyromegaly. LUNGS: Unlabored breathing. Clear to auscultation anteriorly. No wheeze or crackles. HEART: S1, S2 regular rate and rhythm. ABDOMEN: Soft, no tenderness. EXTREMITIES: Right leg with minimal erythema slightly warm to touch. No skin breakdown. No drainage. No evidence of athlete's foot. NEUROLOGICAL: Patient is awake, alert, oriented x3. Mood and affect normal. LABS: Hemoglobin is 10.5, white count 10.9. BUN 10, creatinine 0.66. DIAGNOSTIC IMPRESSION AND PLAN: Patient admitted with right lower extremity cellulitis with diffuse swelling and low grade fever with some dry scaly skin likely representing Streptococcus in patient with no risk factors of MRSA infection. PLAN: 1. Discontinue vancomycin. 2. Will start the patient on cefazolin 2 g q.8 hours. 3. Tim the area of redness. 4. will follow up on clinical condition and cultures to further adjust medications if needed. Thank you for this consultation. I will follow this patient along with you. RAFAEL
[2016-11-02] MEDS: ATORVASTATIN 80 MG TAB PO SCH (20:25)
[2016-11-02] MEDS ORDERED: IV VANCOMYCIN PER PHARMACY 1 EACH MISC MISCELLANE PRN (22:38)
[2016-11-02] MEDS: ESOMEPRAZOLE 20 MG in SODIUM CHLORIDE 0.9% 50 ML IVPB SCH (22:40)
[2016-11-02] MEDS: VANCOMYCIN 1,250 MG in SODIUM CHLORIDE 0.9% 250 ML IVPB SCH (23:12)
[2016-11-03] MEDS: VANCOMYCIN 1,250 MG in SODIUM CHLORIDE 0.9% 250 ML IVPB SCH ×2 (06:36→14:46)
[2016-11-03 08:09] VITALS: RESP 16
--- NOTE | 2016-11-03 08:22 | P.PN ---
Subjective Principal diagnosis: Continuing Care with Cellulitis This is a continue progress note on a 56-year-old white male essentially admitted for right lower extremity cellulitis of the inguinal area and below the knee. The redness is still significantly present but, by history, slightly decreased. No significant fever stated. No voiding symptoms. He has an underlying history of alcoholic dependence and was recently in rehab doing quite well. There is an extended period of sobriety in months. Objective - Vital Signs Vital signs: Vital Signs Temp 98.4 F 11/03/16 07:00 Pulse 81 11/03/16 07:00 Resp 16 11/03/16 07:00 BP 153/71 11/03/16 07:00 Pulse Ox 96 11/03/16 07:00 Intake & Output 11/02/16 11/03/16 11/03/16 18:59 06:59 18:59 Intake Total 1480 545 Balance 1480 545 Weight 75.75 kg Intake: Intake, IV Titration 800 425 Amount Esomeprazole 20 mg In 100 50 Sodium Chloride 0.9% 50 ml @ 100 mls/hr IVPB Q24H [facility] Rx#:[id number] Sodium Chloride 0.9% 1, 600 000 ml @ 100 mls/hr IV . Q10H [facility] Rx#:[id number] Vancomycin 1,250 mg In 375 Sodium Chloride 0.9% 250 ml @ 125 mls/hr IVPB Q8H [facility] Rx#:[id number] ceFAZolin 2 gm In Sodium 100 Chloride 0.9% 100 ml @ 100 mls/hr IVPB Q8HR [facility] Rx#:[id number] Oral 680 120 Other: # Voids 2 # Bowel Movements 1 - Constitutional General appearance: Present: average body habitus - EENT Eyes: Absent: abnormal pupil - Respiratory Respiratory: bilateral: CTA - Cardiovascular Rhythm: regular Heart sounds: normal: S1, S2 - Gastrointestinal General gastrointestinal: Present: soft. Absent: tenderness - Psychiatric Psychiatric: Present: A&O x's 3, appropriate affect - Labs CBC & Chem 7: 11/01/16 05:30 11/02/16 05:13 Labs: Microbiology - Last 24 Hours (Table) 11/01/16 05:30 Blood Culture - Preliminary Blood No Growth after 48 hours 11/01/16 17:45 Urine Culture - Final Urine,Voided 11/01/16 10:19 Blood Culture - Preliminary Blood No Growth after 24 hours Assessment and Plan (1) Dehydration Status: Acute (2) Alcohol dependence Status: Acute Plan: Continue current regimen of treatment. Check CBC and CMP in a.m. Time with Patient: Less than 30
[2016-11-03 08:23] LABS: Anion Gap 7 mmol/L; Blood Urea Nitrogen 9 mg/dL (9-20); Calcium 7.7 mg/dL (8.4-10.2); Carbon Dioxide 24 mmol/L (22-30); Chloride 106 mmol/L (98-107); Glucose 191 mg/dL (74-99); Non-African American GFR(MDRD) >60 (>60 ml/min/1.73 sqM); Potassium 3.5 mmol/L (3.5-5.1); Sodium 137 mmol/L (137-145)
[2016-11-03] MEDS: ENOXAPARIN 40 MG/0.4 ML SYRINGE SQ SCH (08:25)
[2016-11-03] MEDS: METOPROLOL TARTRATE 50 MG TAB PO SCH ×2 (08:25→21:15)
[2016-11-03] MEDS: GABAPENTIN 300 MG CAP PO SCH ×3 (08:25→21:15)
[2016-11-03] MEDS: lamoTRIgine 100 MG TAB PO SCH (08:25)
[2016-11-03] MEDS: PRASUGREL 10 MG TAB PO SCH (08:25)
[2016-11-03 08:31] LABS: CH 32.7; CHCM 32.8; HCT 31.7 % (39.0-53.0); HDW 2.29; HGB 10.5 gm/dL (13.0-17.5); MCH 32.9 pg (25.0-35.0); MCV 99.8 fL (80.0-100.0); Macrocytosis Slight; Mean Platelet Volume 8.4; RBC 3.18 m/uL (4.30-5.90); RDW 14.8 % (11.5-15.5); WBC 4.8 k/uL (3.8-10.6)
--- NOTE | 2016-11-03 11:15 | CONS ---
Mr. Carrasco is a 56-year-old gentleman with history of ischemic heart disease who had stent placement to the right coronary artery done in 2016. This was done in October 2015. Patient is now admitted to the hospital with complaints of redness and pain in the right upper thigh as well as pain in the lower leg associated with the swelling. He claims these signs and symptoms have been present for the last couple of weeks. He was complaining of some pain in the right calf. He denied any difficulty breathing or shortness of breath. He does complain of mild vague chest pain. He is being treated with antibiotics for cellulitis. Patient does have mild fever. He denied any nausea or vomiting or diarrhea. His EKGs did not reveal any acute changes. His cardiac troponin values were in the abnormal range. Patient is currently being treated with possible strep cellulitis and septicemia. ID consult is also obtained. From the cardiac standpoint, will continue to monitor him. I will await for the troponin and also get an echocardiogram. Will continue with conservative management at this time. In the future patient may need a repeat stress test or cardiac catheterization for further delineation. His past medical history is significant for ischemic heart disease, previous stent placement to the RCA, hyperlipidemia, hypertension, osteoarthritis, chronic bronchitis, also chronic alcohol use. REVIEW OF SYSTEMS: Patient denies any fever or chills. Denies any visual disturbance. Complains of mild vague chest pain. Denies orthopnea or paroxysmal nocturnal dyspnea. No complaints of cough or hemoptysis. No diarrhea, nausea or vomiting. Neurologically no headache and no weakness. The rest of the information as per chart. His medications prior to admission included thiamine, metoprolol tartrate 50 mg daily, lisinopril 5 mg daily, gabapentin 3 mg p.o. b.i.d., Effient 10 mg daily, nitroglycerine, Lipitor 80 mg and ibuprofen along with baby aspirin. Since admission the patient has been maintained on Lipitor, metoprolol tartrate and also prasugrel. ( ) since stent placement. Physical examination at this time reveals a 56-year-old gentleman who is alert and does not appear to be in any acute distress. His blood pressure is running about 140/70, pulse rate is about 60 to 70, respirations 16 to 20, saturations are 98%. Pupils are round and equal. Neck is supple. No JVD. Heart: S1, S2 heard. No significant murmurs heard. Lungs appear clear. Abdomen is soft. Extremities with no significant edema. FINAL IMPRESSION: 1. Cellulitis of the right leg, is being treated with antibiotics. 2. Abnormal troponin values with history of previous history of ischemic heart disease. Patient is having mild vague chest pains. 3. Alcohol abuse. 4. Possible cirrhosis. 5. Hypertension. 6. Hyperlipidemia. PLAN: Will continue with the infectious disease evaluation and continue antibiotic therapy. Will get an echocardiogram. Will follow further enzyme studies. Further recommendations will depend upon the clinical course. Patient may need repeat stress test or cardiac cath for further evaluation when stable. MTDD
[2016-11-03] MEDS: THIAMINE 100 MG TAB PO SCH ×2 (11:46→16:33)
--- NOTE | 2016-11-03 13:07 | PN ---
DATE OF SERVICE: 11/02/2016 REASON FOR FOLLOWUP: Right lower extremity cellulitis. INTERVAL HISTORY: The patient is afebrile. The right leg swelling and redness has slightly improved. The patient denies any significant chest pain. No shortness of breath or cough and no abdominal pain or diarrhea. On examination: Blood pressure 100/84 with pulse 80. Temperature 99.8. He is 95 % on room air. General description is a middle aged male lying in bed in no distress. RESPIRATORY: Unlabored breathing. Clear to auscultation anteriorly. HEART: S1, S2 regular rate and rhythm. ABDOMEN: Soft, no tenderness. EXTREMITIES: The right leg swelling and redness are about the same. No significant change compared to yesterday. LABS: BUN 13, creatinine 0.6, blood cultures have been negative. DIAGNOSTIC IMPRESSION AND PLAN: Patient with right lower extremity cellulitis in patient now with low grade fever. No significant improvement or redness. Antibiotics were switched back to vancomycin. Will reevaluate the patient tomorrow. Keep the leg elevated. Continue supportive care. RAFAEL
--- NOTE | 2016-11-03 15:31 | P.PN ---
Progress Note - Text INTERVAL HISTORY: The patient is a 56-year-old male with history of ischemic heart disease and had stent placement to the right coronary artery in October 2015. He presented to the hospital this time with complaints of redness and pain in the right upper and lower extremity. He was subsequently diagnosed with cellulitis and is on IV antibiotics being followed by infectious disease. Upon examination today he is seen resting in bed comfortably no signs of acute distress. He denies chest pain, shortness of breath, nausea, vomiting, dizziness, palpitations or diaphoresis. He states the pain is epigastric and sharp. It occurred while he was sitting in bed and went away after taking some deep breaths. PHYSICAL EXAMINATION: Blood pressure 162/79, heart rate 87, respirations 16, temp 98.9, 98 % on room air. HEART: S1, S2 normal. No murmur, no gallop. Regular rate and rhythm. LUNGS: Clear to auscultation. NECK: Supple. ABDOMEN: Soft, non-tender, positive bowel sounds, distended and tympanic. EXTREMITIES: 2+ peripheral pulses, no edema. LAB DATA: Hemoglobin 10.5, potassium 3.5, BUN 9, creatinine 0.62, troponin #1 0.164, #2 0.188 #3 pending, EKG normal sinus mechanism. FINAL IMPRESSION: 1. Cellulitis right lower extremity. 2. Chest pain, atypical. 3. Chronic alcohol abuse. 4. Coronary artery disease. 5. Hypertension. 6. Possible liver cirrhosis. 7. Hyperlipidemia PLAN: Repeat one more troponin level. Obtain echocardiogram. Patient may need repeat stress test or cardiac catheterization for further evaluation when stable from a medical standpoint. We will continue to follow the patient closely and manage him medically at this time. Nurse Practitioner note has been reviewed, I agree with a documented findings and plan of care. Patient was seen and examined.
[2016-11-03] MEDS: HYDROcodone/APAP 5-325MG 1 EACH TAB PO PRN (16:39)
[2016-11-03] MEDS: ATORVASTATIN 80 MG TAB PO SCH (21:15)
[2016-11-03] MEDS: PANTOPRAZOLE 40 MG TABLET PO SCH (21:16)
[2016-11-04] MEDS: VANCOMYCIN 1,250 MG in SODIUM CHLORIDE 0.9% 250 ML IVPB SCH ×4 (00:04→23:08)
[2016-11-04] MEDS ORDERED: VANCOMYCIN TROUGH DUE 1 EACH MISC MISCELLANE ONE (06:00)
[2016-11-04] MEDS: ENOXAPARIN 40 MG/0.4 ML SYRINGE SQ SCH (07:45)
[2016-11-04] MEDS: lamoTRIgine 100 MG TAB PO SCH (07:45)
[2016-11-04] MEDS: GABAPENTIN 300 MG CAP PO SCH ×3 (07:45→19:46)
[2016-11-04] MEDS: PRASUGREL 10 MG TAB PO SCH (07:46)
[2016-11-04] MEDS: METOPROLOL TARTRATE 50 MG TAB PO SCH ×2 (07:46→19:46)
[2016-11-04] MEDS: HYDROcodone/APAP 5-325MG 1 EACH TAB PO PRN (07:47)
[2016-11-04 08:18] LABS: ALT 49 U/L (21-72); AST 69 U/L (17-59); Alkaline Phosphatase 62 U/L (38-126); Anion Gap 5 mmol/L; Blood Urea Nitrogen 7 mg/dL (9-20); Calcium 7.9 mg/dL (8.4-10.2); Carbon Dioxide 25 mmol/L (22-30); Chloride 106 mmol/L (98-107); Glucose 104 mg/dL (74-99); Non-African American GFR(MDRD) >60 (>60 ml/min/1.73 sqM); Potassium 3.6 mmol/L (3.5-5.1); Sodium 136 mmol/L (137-145); Total Bilirubin 1.5 mg/dL (0.2-1.3); Total Protein 4.7 g/dL (6.3-8.2)
[2016-11-04 08:24] LABS: CH 32.8; CHCM 32.7; HCT 31.9 % (39.0-53.0); HDW 2.36; HGB 10.5 gm/dL (13.0-17.5); MCH 33.3 pg (25.0-35.0); MCV 100.9 fL (80.0-100.0); Macrocytosis Slight; Mean Platelet Volume 8.4; RBC 3.16 m/uL (4.30-5.90); RDW 15.1 % (11.5-15.5); WBC 5.3 k/uL (3.8-10.6)
--- NOTE | 2016-11-04 09:20 | PN ---
DATE OF SERVICE: 11/03/2016 Reason for followup is right lower extremity cellulitis. INTERVAL HISTORY: The patient is afebrile who has been breathing comfortably. The right leg swelling and redness with minimal improvement. Patient denies any significant chest pain, shortness of breath or cough. No abdominal pain or any diarrhea. On examination, blood pressure is 162/79 with a pulse of 87, temperature 98.9. He is 98% on room air. General description is a middle age male lying in bed in no distress. RESPIRATORY SYSTEM: Unlabored breathing. Clear to auscultation anteriorly. HEART: S1 and S2, regular rate and rhythm. ABDOMEN: Soft. no tenderness. Right leg swelling has been minimally improved. LABS: Hemoglobin 10.5, white count 4.8 with a BUN of 9 and creatinine 0.62. DIAGNOSTIC IMPRESSION AND PLAN: The patient with right lower extremity cellulitis slowly responding to the vancomycin , pt has been advised to apply an Taiwo wrap to keep some of the swelling down. Continue support care. RAFAEL
[2016-11-04] MEDS ORDERED: NYSTAT-TRIAMCIN 100,000-0.1 UNIT/GM-% CREAM 30 GM TUBE TOPICAL SCH (10:00)
--- NOTE | 2016-11-04 10:17 | ECHOF ---
Referral Reason:chest pain MEASUREMENTS -------- HEIGHT: 180.3 cm WEIGHT: 75.7 kg BP: 162/79 IVSd: 1.5 cm (0.6 - 1.1) LVIDd: 4.0 cm (3.9 - 5.3) LVPWd: 1.4 cm (0.6 - 1.1) IVSs: 2.4 cm LVIDs: 1.5 cm LVPWs: 1.9 cm Ao Diam: 3.8 cm (2.0 - 3.7) AV Cusp: 2.4 cm (1.5 - 2.6) LA Diam: 3.5 cm (2.7 - 3.8) MV EXCURSION: 15.965 mm (> 18.000) MV EF SLOPE: 138 mm/s (70 - 150) EPSS: 0.4 cm MV E Gregorio: 1.23 m/s MV DecT: 158 ms MV A Gregorio: 0.89 m/s MV E/A Ratio: 1.38 AR PHT: 157 ms RAP: 5.00 mmHg RVSP: 35.51 mmHg FINDINGS -------- Sinus rhythm. This was a technically good study. There is moderate concentric left ventricular hypertrophy. Overall left ventricular systolic function is normal with, an EF between 55 - 60 %. The right ventricle is normal in size and function. The left atrium is normal in size. The right atrium is normal in size. Aortic valve is trileaflet and is mildly thickened. The mitral valve leaflets are mildly thickened. Mild mitral regurgitation is present. Mild tricuspid regurgitation present. The right ventricular systolic pressure, as measured by Doppler, is 35.51mmHg. Pulmonic valve appears structurally normal. The aortic root is mildy dilated. The pericardium is normal. CONCLUSIONS -------- 1. Sinus rhythm. 2. Mild mitral regurgitation is present. 3. Mild tricuspid regurgitation present. 4. The right ventricular systolic pressure, as measured by Doppler, is 35.51mmHg. 5. Pulmonic valve appears structurally normal. 6. The aortic root is mildy dilated. 7. The pericardium is normal. 8. This was a technically good study. 9. There is moderate concentric left ventricular hypertrophy. 10. Overall left ventricular systolic function is normal with, an EF between 55 - 60 %. 11. The right ventricle is normal in size and function. 12. The left atrium is normal in size. 13. The right atrium is normal in size. 14. Aortic valve is trileaflet and is mildly thickened. 15. The mitral valve leaflets are mildly thickened. DIRECTOR LOAN: Puja Reis RDCS
[2016-11-04] MEDS: LISINOPRIL 10 MG TAB PO SCH (11:29)
[2016-11-04] MEDS: NYSTATIN 100,000UNIT/GM CREAM 30 GM TUBE TOPICAL SCH ×2 (11:29→19:46)
[2016-11-04] MEDS: TRIAMCINOLONE 0.1% CREAM 80 GM TUBE TOPICAL SCH ×2 (11:29→19:46)
[2016-11-04] MEDS: THIAMINE 100 MG TAB PO SCH ×2 (11:31→17:45)
--- NOTE | 2016-11-04 14:23 | P.PN ---
Progress Note - Text INTERVAL HISTORY: The patient is a 56-year-old male who presented with cellulitis to the right lower extremity. He had an episode of chest pain that was epigastric in nature, nonreproducible and atypical. Upon examination today he is seen resting in bed in no acute distress. He denies any further episodes of chest pain. He also denies any shortness of breath, palpitations, nausea or vomiting. Echocardiogram was performed yesterday which shows maintained LV function with an ejection fraction of 55-60%, mild mitral regurgitation, mild tricuspid regurgitation and ventricular systolic pressure 35.51 mmHg. Repeat troponin shows trending down. He is mildly hypertensive, will restart lisinopril at increased dose. PHYSICAL EXAMINATION: Blood pressure 165/89, heart rate 78, respirations exchange, temp 98.0, 96 % on room air. HEART: S1, S2 normal. No murmur, no gallop. Regular rate and rhythm. LUNGS: Clear to auscultation. NECK: Supple. ABDOMEN: Soft, non-tender, positive bowel sounds, ongoing mild distention with tympany. EXTREMITIES: 2+ peripheral pulses, no edema. LAB DATA: Hemoglobin 10.5, potassium 3.6, BUN 7, creatinine 0.62, serial troponins 0.164, 0.188, 0.068, echocardiogram results as listed above. FINAL IMPRESSION: 1. Cellulitis right lower extremity. 2. Chest pain, atypical. 3. Chronic alcohol abuse. 4. History of coronary artery disease. 5. Hypertension. 6. Possible liver cirrhosis. 7. Hyperlipidemia. PLAN: At this time his chest pain is not indicative of acute coronary syndrome, we recommend patient follow-up as an outpatient once cellulitis has resolved at which time we will perform a stress test as needed. We recommend medical team to evaluate abdominal distention for possible liver cirrhosis. We thank you for allowing us to take part in the care of this patient. Nurse Practitioner note has been reviewed, I agree with a documented findings and plan of care. Patient was seen and examined.
[2016-11-04] MEDS: LORazepam 2 MG/ML SYRINGE IV PRN (15:06)
--- NOTE | 2016-11-04 18:24 | PN ---
DATE OF SERVICE: 11/04/16 REASON FOR FOLLOW UP: Right lower extremity cellulitis. INTERVAL HISTORY: The patient is afebrile. The right leg swelling and redness is slightly improved. The patient has been complaining of itching and rash to the right leg area. The patient denies significant chest pain, shortness of breath, cough, abdominal pain or any diarrhea. On examination, blood pressure 165/89, pulse 78, temperature 98, he is 96% on room air. General description revealed a middle age male lying in the bed, in no distress. Respiratory: Unlabored breathing. Clear to auscultation anteriorly. Heart: S1, S2 regular rate and rhythm. Abdomen soft, no tenderness. Right leg swelling and redness has improved. No drainage noticed. Labs: Hemoglobin 10.5, white count 5.3, BUN 7, creatinine 0.62. Vanco level 13.3. Blood cultures remain to be negative. DIAGNOSTIC IMPRESSION AND PLAN: 1. Patient with right lower extremity cellulitis. This morning the Vancomycin will be continued with a view of itching and rash. We will apply Mycolog cream to the leg area. Continue mehreen wrap and reevaluate the patient tomorrow. 2. Continue supportive care. MTDD
[2016-11-04] MEDS: ATORVASTATIN 80 MG TAB PO SCH (19:45)
[2016-11-04] MEDS: PANTOPRAZOLE 40 MG TABLET PO SCH (19:46)
[2016-11-05 00:11] VITALS: PULSE 75
[2016-11-05] MEDS: VANCOMYCIN 1,250 MG in SODIUM CHLORIDE 0.9% 250 ML IVPB SCH (07:12)
[2016-11-05] MEDS: LISINOPRIL 10 MG TAB PO SCH (07:41)
[2016-11-05] MEDS: lamoTRIgine 100 MG TAB PO SCH (07:41)
[2016-11-05] MEDS: GABAPENTIN 300 MG CAP PO SCH (07:42)
[2016-11-05] MEDS: PRASUGREL 10 MG TAB PO SCH (07:42)
[2016-11-05] MEDS: NYSTATIN 100,000UNIT/GM CREAM 30 GM TUBE TOPICAL SCH (07:42)
[2016-11-05] MEDS: ENOXAPARIN 40 MG/0.4 ML SYRINGE SQ SCH (07:42)
[2016-11-05] MEDS: METOPROLOL TARTRATE 50 MG TAB PO SCH (07:42)
[2016-11-05] MEDS: TRIAMCINOLONE 0.1% CREAM 80 GM TUBE TOPICAL SCH (07:43)
[2016-11-05 07:59] VITALS: BP 181/102; TEMP 98.3
--- NOTE | 2016-11-05 08:23 | P.DS ---
Providers Date of admission: 11/01/16 08:39 Expected date of discharge: 11/05/16 Attending physician: Jerry Nieto Consults: 11/01/16 11:23 Consult Physician Routine Consulting Provider: Rosario Esqueda Consult Reason/Comments: RLE Cellulitis Do you want consulting provider notified?: Already Contacted 11/02/16 01:12 Consult Physician Routine Consulting Provider: Magda Juarez Consult Reason/Comments: Elevated troponin, chest pain Do you want consulting provider notified?: Yes Primary care physician: Jerry Nieto - Discharge Diagnosis(es) (1) Dehydration Current Visit: Yes Status: Acute (2) Alcohol dependence Current Visit: No Status: Acute Hospital Course: This is a discharge summary 56-year-old white male who is admitted for cellulitis of the inguinal and right lower extremity. The patient did quite well after vancomycin. He will be transitioned to oral antibiotics of Augmentin or Levaquin. The patient did quite well and he is afebrile. Unfortunately, he does struggle with chronic alcoholism but has been sober after being treated at [facility]. The patient is discharged in stable condition to follow-up with me in 5-7 days. Patient Condition at Discharge: Fair Plan - Discharge Summary New Discharge Prescriptions: New Levofloxacin [Levaquin] 500 mg PO DAILY #7 tab No Action lamoTRIgine 200 mg PO DAILY Atorvastatin [Lipitor] 80 mg PO HS #30 tab Nitroglycerin Sl Tabs [Nitrostat] 0.4 mg SUBLINGUAL Q5M PRN #50 tab PRN Reason: Chest Pain Prasugrel [Effient] 10 mg PO DAILY #30 tab Gabapentin [Neurontin] 300 mg PO TID Ibuprofen [Motrin] 600 mg PO Q6HR PRN #40 day PRN Reason: Pain Thiamine HCl [Vitamin B-1] 50 mg PO DAILY Metoprolol Tartrate [Lopressor] 50 mg PO DAILY Lisinopril [Prinivil] 5 mg PO DAILY Cyanocobalamin [Vitamin B-12] 500 mcg PO DAILY Vitamin A 8,000 unit PO DAILY Discharge Medication List lamoTRIgine 200 mg PO DAILY 10/29/15 [History] Atorvastatin [Lipitor] 80 mg PO HS #30 tab 11/01/15 [Rx] Nitroglycerin Sl Tabs [Nitrostat] 0.4 mg SUBLINGUAL Q5M PRN #50 tab 11/01/15 [Rx ] Prasugrel [Effient] 10 mg PO DAILY #30 tab 11/01/15 [Rx] Gabapentin [Neurontin] 300 mg PO TID 12/14/15 [History] Ibuprofen [Motrin] 600 mg PO Q6HR PRN #40 day 06/23/16 [Rx] Cyanocobalamin [Vitamin B-12] 500 mcg PO DAILY 11/01/16 [History] Lisinopril [Prinivil] 5 mg PO DAILY 11/01/16 [History] Metoprolol Tartrate [Lopressor] 50 mg PO DAILY 11/01/16 [History] Thiamine HCl [Vitamin B-1] 50 mg PO DAILY 11/01/16 [History] Vitamin A 8,000 unit PO DAILY 11/01/16 [History] Levofloxacin [Levaquin] 500 mg PO DAILY #7 tab 11/05/16 [Rx] Follow up Appointment(s)/Referral(s): Magda Juarez MD [STAFF PHYSICIAN] - 1 Week Jerry Nieto MD [Primary Care Provider] - 1 Week Discharge Disposition: HOME SELF-CARE
[2016-11-05] MEDS ORDERED: LISINOPRIL 10 MG TAB PO ONE (09:00)
[2016-11-05 09:08] LABS: Anion Gap 7 mmol/L; Blood Urea Nitrogen 8 mg/dL (9-20); Calcium 8.5 mg/dL (8.4-10.2); Carbon Dioxide 28 mmol/L (22-30); Chloride 103 mmol/L (98-107); Glucose 152 mg/dL (74-99); Non-African American GFR(MDRD) >60 (>60 ml/min/1.73 sqM); Potassium 3.6 mmol/L (3.5-5.1); Sodium 138 mmol/L (137-145)
[2016-11-05] MEDS ORDERED: amLODIPine 5 MG TAB PO SCH (09:45)
--- NOTE | 2016-11-05 14:51 | P.PN ---
Progress Note - Text INTERVAL HISTORY: The patient is a 56-year-old male who presented with cellulitis to the right lower extremity. He had an episode of chest pain with epigastric in nature, nonreproducible and atypical. Upon examination today he is seen in no acute distress HEENT denies any further episodes of chest pain. He also denies shortness of breath, palpitations, nausea or vomiting. Lisinopril but added medication regimen yesterday for ongoing hypertension. He remains hypertensive despite increased dose. We will add amlodipine to his daily regimen. PHYSICAL EXAMINATION: Blood pressure 181/102, heart rate 75, respirations 16, temp 98.3, 95 % on room air. HEART: S1, S2 normal. No murmur, no gallop. Regular rate and rhythm. LUNGS: Clear to auscultation. NECK: Supple. ABDOMEN: Soft, non-tender, positive bowel sounds. EXTREMITIES: 2+ peripheral pulses, no edema. LAB DATA: Labs from 11/04 hemoglobin 10.5, BMP from 11/05 potassium 3.6, BUN 8, creatinine 0.62. FINAL IMPRESSION: 1. Cellulitis right lower extremity. 2. Chest pain, atypical. 3. Chronic alcohol abuse. 4. History of coronary artery disease. 5. Hypertension. 6. Possible liver cirrhosis. 7. Hyperlipidemia. PLAN: Our understanding the patient is being discharged home this morning, he should continue on his medication regimen he was on in the hospital with the addition of amlodipine 5 mg by mouth daily with the first dose given now. As advised yesterday Mr. Carrasco should follow-up Dr. Juarez in one week. Nurse Practitioner note has been reviewed, I agree with a documented findings and plan of care. Patient was seen and examined.
[2016-11-06] MEDS ORDERED: LISINOPRIL 20 MG TAB PO SCH (09:00)
--- NOTE | 2016-11-07 09:49 | CDI ---
In responding to this query, please exercise your independent professional judgment. The [facility] Coding Staff and Clinical Documentation Specialists appreciate your assistance in clarifying documentation, maintaining compliance with coding guidelines, accurately documenting patients condition and capturing severity of illness. The fact that a question is asked does not imply that any particular answer is desired or expected. Communication forms are a method of clarifying documentation and are not made part of the Legal Health Record. Thank you in advance for your clarification. Last Revision, February 2015 Dominick Aguilar [address] [facility] [place] [address] Documentation Clarification Form Date: 11/07/2016 9:19:00 AM From: Jaylin Lenora Phone: Admit Date: 11/01/2016 8:39:00 AM Patient Name: Kaiser Carrasco Visit Number: [id number] Discharge Date: Dr. Jerry Nieto Sepsis and severe sepsis is documented in the History & Physical and in a 11/02 progress note. Patient history/risk factors: Patient was admitted with cellulitis of the right lower limb. Lab findings: WBC on admission 10.9, Lactic acid on admission 2.9. Vital Signs: On admission: T. 99.8, P. 68, R. 18, BP 146/66 Treatment: IV Cefazolin, IV Ceftriaxone, IV Levofloxacin, IV Vancomycin Consults: Right lower extremity cellulitis with swelling and low grade fever with some dry scaly skin likely representing Streptococcus. No sepsis mentioned. In your professional opinion, can you please clarify was Severe Sepsis Ruled In or Ruled Out? Other Unable to determine Please document in your discharge summary in order to capture severity of illness and risk of mortality. Include clinical findings that support your diagnosis. FYI: Press F11 to launch patient chart. If you have a question about this query, please contact Rosita Garcia Filament Maker at [phone] between 8 am and 5 pm. RAFAEL
== END 2016-11-05 09:55 | disposition home or self-care (01) | DRG 872 ==
LOC: EC 04:36 → 5MS5E 08:39
PROVIDERS: ADMIT Family Medicine; ATTEND Family Medicine
DX: A41.9 Sepsis, unspecified organism (principal); E87.2 Acidosis; E87.1 Hypo-osmolality and hyponatremia; E83.42 Hypomagnesemia; I08.1 Rheumatic disorders of both mitral and tricuspid valves; L03.115 Cellulitis of right lower limb; K74.60 Unspecified cirrhosis of liver; R65.20 Severe sepsis without septic shock; I10 Essential (primary) hypertension; E78.5 Hyperlipidemia, unspecified; E86.0 Dehydration; F10.229 Alcohol dependence with intoxication, unspecified; F32.9 Major depressive disorder, single episode, unspecified; F41.9 Anxiety disorder, unspecified; I25.9 Chronic ischemic heart disease, unspecified; J42 Unspecified chronic bronchitis; L29.9 Pruritus, unspecified; M19.90 Unspecified osteoarthritis, unspecified site; R74.8 Abnormal levels of other serum enzymes; K21.9 Gastro-esophageal reflux disease without esophagitis; K29.20 Alcoholic gastritis without bleeding; Z79.899 Other long term (current) drug therapy; Z79.01 Long term (current) use of anticoagulants; Z95.5 Presence of coronary angioplasty implant and graft; Z88.0 Allergy status to penicillin; Z88.8 Allergy status to other drugs, medicaments and biological substances
CPT/HCPCS: 36415; 71020; 80048; 80053; 80202; 80320; 81001; 83605; 83735; 84484; 85025; 85027; 85610; 85730; 87040; 87086; 93005; 93306; 96365; 96367; 96372; 96375; 99285